=== PATIENT | male | born 1980 | race Caucasian/White ===

== ENCOUNTER → 2020-03-30 | Outpatient (CLI) | payer BC ==
[~2020-03-30] VITALS: Ht 182.9 cm; Wt 97.2 kg
[~2020-03-30] MED LIST: CEPHALEXIN500 M1 PO; NO HOME MEDICATIONS; NORCO 325 MG-51 TAB PO
[2020-03-30 12:21] VITALS: BP 135/85; PULSE 69
[2020-03-30 13:50] VITALS: BP 131/80; PULSE 69
== END ==
LOC: COL.RAD 11:57
DX: M51.26 Other intervertebral disc displacement, lumbar region (principal)
CPT/HCPCS: J3301

== ENCOUNTER → 2020-04-15 | Outpatient (CLI) | payer BC ==
[~2020-04-15] VITALS: Ht 182.9 cm; Wt 95.5 kg
[2020-04-15 12:41] VITALS: BP 126/83; PULSE 81
[2020-04-15 14:00] VITALS: BP 131/88; PULSE 68
== END ==
LOC: COL.RAD 12:16
DX: M51.26 Other intervertebral disc displacement, lumbar region (principal)
CPT/HCPCS: J3301

== ENCOUNTER → 2020-04-28 | Outpatient (CLI) | payer BC | LOC: ZCOL.LAB 16:20 | DX: Z20.828 Contact with and (suspected) exposure to other viral communicable diseases (principal) ==